=== PATIENT | female | born 1960 | race Caucasian/White ===

== ENCOUNTER 2022-05-13 10:20 | Inpatient (IN) | payer OTHER ==
[~2022-05-13] VITALS: Ht 167.6 cm; Wt 92.5 kg
--- NOTE | 2022-05-13 10:20 | NUR ---
ALEJANDRO FROM SNF FOR ALOC, POTENTIAL INFECTION. PATIENT BASELINE GCS 14 PER REPORT, PATIENT IS CURRENTLY A/O X 3, ABLE TO MAKE NEEDS KNOWN. ON 10 LPM O2 VIA FACE MASK
--- NOTE | 2022-05-13 10:36 | NUR ---
TEMP 102.6 MD KELSEA MADE AWARE
[2022-05-13] MEDS ORDERED: ACETAMINOPHEN 650 MG/SUPP.RECT RC ONE ×2 (10:37→11:00)
--- NOTE | 2022-05-13 10:48 | NUR ---
covid/urine/blood sample taken sent to lab
[2022-05-13 10:50] LABS: BASOPHILS % (AUTO) 0.3 % (0.0-2.0); HEMATOCRIT 40 % (33-45); HEMOGLOBIN 12.6 g/dL (11.5-14.8); LYMPHOCYTES # (AUTO) 1.9 K/uL (0.8-4.8); LYMPHOCYTES % (AUTO) 12.7 % (20.0-44.0); MEAN CORPUSCULAR HGB CONC 32 g/dl (31.0-36.0); MEAN CORPUSCULAR VOLUME 99 fL (82-100); MONOCYTES % (AUTO) 7.1 % (2.0-12.0); NEUTROPHILS # (AUTO) 11.8 K/uL (1.8-8.9); NEUTROPHILS % (AUTO) 79.9 % (43.0-81.0); PLATELET COUNT (AUTO) 145 K/uL (150-450); RED BLOOD CELL COUNT(AUTO) 4.03 MIL/uL (4.0-5.2); WHITE BLOOD COUNT (AUTO) 14.8 K/uL (4.3-11.0)
[2022-05-13] MEDS ORDERED: MEGE400O5 PO (11:00)
[2022-05-13] MEDS ORDERED: MAGN400O6 PO (11:00)
[2022-05-13] MEDS ORDERED: NA P133E RC (11:00)
[2022-05-13] MEDS ORDERED: IV NS 0.9% 1,000 ML BAG IV ONE ×2 (11:00→12:00)
[2022-05-13] MEDS ORDERED: ZINC56.713 TP (11:00)
[2022-05-13] MEDS ORDERED: OMEP1PAC7 PO (11:00)
[2022-05-13] MEDS ORDERED: BISA10SU11 RC (11:00)
[2022-05-13] MEDS ORDERED: ACET-2605 PO (11:00)
[2022-05-13] MEDS ORDERED: ACET-868 PO (11:00)
--- NOTE | 2022-05-13 11:11 | NUR ---
TROPONIN 100 , LACTIC ACID 3.4 . MADE AWARE
[2022-05-13 11:16] LABS: ALANINE AMINOTRANSFERASE 31 U/L (12-78); ALBUMIN 2.3 g/dL (3.4-5.0); ALKALINE PHOSPHATASE 123 U/L (46-116); ASPARTATE AMINOTRANSFERASE 54 U/L (15-37); BILIRUBIN,DIRECT 1.8 mg/dL (0.0-0.2); BILIRUBIN,TOTAL 2.9 mg/dL (0.2-1.0); CALCIUM, SERUM 8.4 mg/dL (8.5-10.1); CARBON DIOXIDE 30 mmol/L (21-32); CHLORIDE 117 mmol/L (98-107); CREATININE 1.5 mg/dL (0.6-1.3); GLUCOSE 130 mg/dL (74-106); SODIUM SERUM 153 mmol/L (136-145); TOTAL PROTEIN, SERUM 6.8 g/dL (6.4-8.2); UREA NITROGEN, BLOOD 50 mg/dL (7-18)
--- NOTE | 2022-05-13 11:21 | NUR ---
SUBMITTED MOVE PACKET
--- NOTE | 2022-05-13 11:46 | NUR ---
SECOND URINE SAMPLE OBTAINED
--- NOTE | 2022-05-13 11:52 | NUR ---
SPOKE WITH WOOD TURNER AND PROVIDED PATIENT MEDICAL HISTORY
--- NOTE | 2022-05-13 11:56 | NUR ---
CALLED NURSING SUP FOR BED
[2022-05-13] MEDS ORDERED: CEFTRIAXONE 1GM BAG (ER ONLY) 50 ML IV ONE ×2 (12:00→12:09)
--- NOTE | 2022-05-13 12:41 | NUR ---
EPIC GRAIN I FARMWORKER PAGED
--- NOTE | 2022-05-13 12:52 | NUR ---
ER AND ADMITTING ON PANEL
[2022-05-13 12:59] LABS: COLOR,URINE DARK YELLOW (YELLOW); PROTEIN,URINE 100 mg/dl (NEGATIVE); UGLUCOSE NEGATIVE (NEGATIVE)
[2022-05-13 13:00] LABS: BILIRUBIN,URINE LARGE (NEGATIVE); LEUKOCYTE ESTERASE ,URINE TRACE (NEGATIVE); NITRITE, URINE NEGATIVE (NEGATIVE); UROBILINOGEN,URINE >8.0 EU/dL (0.2)
[2022-05-13] MEDS ORDERED: AZITHROMYCIN 500 MG in IV D5W 250 ML IV ONE (13:00)
--- NOTE | 2022-05-13 13:00 | NUR ---
LACTIC ACID REDRAW 2.0, MADE AWARE
--- NOTE | 2022-05-13 14:00 | NUR ---
ON 6L/MIN VIA SIMPLE MASK TOLERATING WELL, O2SAT @ 95% THIS TIME
[2022-05-13 15:54] LABS: RBC,URINE 21-50 /HPF (0-2)
[2022-05-13 15:55] LABS: BACTERIA,URINE Many /HPF (None Seen); SQUAMOUS EPITHELIAL CELL,UR Many /HPF (None Seen); YEAST,URINE Many /HPF (None Seen)
--- NOTE | 2022-05-13 15:55 | NUR ---
COVID IS NEGATIVE PER VICENTA COOKER LOADER.
[2022-05-13 15:56] LABS: COARSE GRANULAR CASTS,URINE Few /LPF (None Seen)
--- NOTE | 2022-05-13 15:56 | NUR ---
ROOM 304-1 M ADMITTING MADE AWARE
--- NOTE | 2022-05-13 15:59 | NUR ---
ROOM CHANGED TO [facility]
--- NOTE | 2022-05-13 16:00 | NUR ---
MS ADMIT NOTE Pt arrived via gurney at approximately 1600 from ER. AOX2. ON simple facemask 6LPM and tolerating well. Tele monitor detects ST with rate of 89. IV access in L Hand infiltrated will need a new line. Patient from [facility]. Patient has Dang catheter from SNF. Safety precautions in place: bed in lowest, locked position, siderails upX4, and brakes on. Table and call light within reach. All needs met at this time.
--- NOTE | 2022-05-13 16:06 | NUR ---
REPORT GIVEN TO BHARTI WHITMAN
--- NOTE | 2022-05-13 16:14 | NUR ---
MOVED TO INPATIENT ROOM SAFELY PER ACLS PROTOCOL
[2022-05-13 17:51] LABS: BAND % (MANUAL) 2 % (0.0-5.0); LYMPHOCYTES % (MANUAL) 12 % (16-48); MONOCYTES % (MANUAL) 9 % (0-11.0); NEUTROPHILS % (MANUAL) 77 (42-76)
--- NOTE | 2022-05-13 19:00 | NUR ---
RN OPENING NOTE RECEIVED REPORT FR. NURSE CHRIS. PT IS AWAKE IN BED. A/O 1-2, CONFUSED. PT IS IN 6LPM O2 VIA NASAL CANNULA, TOLERATING WELL, BREATHING EVEN AND UNLABORED @ THIS TIME. PT IV PRESENT ON LEFT HAND IS INFILTRATED. IV PRESENT ON RIGHT HAND #20g SALINE LOCK, PATENT, INTACT AND FLUSHES WELL W/ NO IS&SX OF INFILTRATION @ SITE NOTED. PT PARRA CATHETER IS IN PLACE DRAINING TEA COLORED URINE WITH AN OUTPUT OF 300CC. PT IS ON TELE MONITOR W/ CURRENT READING OF SINUS RHYTHM, HR OF 95 BPM. SAFETY MEASURES IS IN PLACE. BED AT LOWEST AND LOCKED POSITION. SIDE RAILS UP X 3. BEDSIDE TABLE AND CALL LIGHT IS EASY REACH. BED ALARM IS ON. WILL CONTINUE TO MONITOR PT ACCORDINGLY.
--- NOTE | 2022-05-13 19:38 | NUR ---
MS RN NOTE Patient AOX1. ON simple facemask 6LPM and tolerating well. Tele monitor detects SR with rate of 95. new IV access in R Hand patent. Dang catheter draining tea-colored urine. Safety precautions in place: bed in lowest, locked position, siderails upX4, and brakes on. Table and call light within reach. All needs met at this time. Notified Vic Manuel NP for new orders, no orders had been made yet. Endorsed to next NOD for RIO.
[2022-05-13 20:00] VITALS: BP 104/53
[2022-05-13] MEDS ORDERED: CEFEPIME 1 GM in IV D5W 50 ML IV SCH (20:00)
[2022-05-13] MEDS ORDERED: ACETAMINOPHEN 325 MG TABLET PO PRN (20:00)
[2022-05-13] MEDS ORDERED: IV LR 1000 ML 1,000 ML IV PRN (20:00)
[2022-05-13] MEDS ORDERED: MAG HYDROX/AL HYDROX/SIMETH 30 ML UDC PO PRN (20:00)
[2022-05-13] MEDS ORDERED: MAGNESIUM HYDROXIDE 30 ML UDC PO PRN (20:00)
[2022-05-13] MEDS ORDERED: ONDANSETRON HCL/PF 4 MG/2 ML VIAL IVP PRN (20:00)
[2022-05-13] MEDS ORDERED: Z GUARD REMEDY 4 OZ OINT TP PRN (20:00)
--- NOTE | 2022-05-13 20:00 | NUR ---
PT IV ON LEFT HAND IS INFILFRATED. IV REMOVED.
[2022-05-13] MEDS: CEFEPIME 2 GM in IV D5W 100 ML IV SCH (21:36)
[2022-05-13] MEDS: ENOXAPARIN SODIUM 40 MG/0.4 ML DISP.SYRIN SQ SCH (22:22)
[2022-05-14] VITALS: BP 104/56
[2022-05-14 04:00] VITALS: BP 95/59
[2022-05-14 06:29] LABS: HEMATOCRIT 35 % (33-45); HEMOGLOBIN 10.8 g/dL (11.5-14.8); LYMPHOCYTES # (AUTO) 1.3 K/uL (0.8-4.8); LYMPHOCYTES % (AUTO) 8.9 % (20.0-44.0); MEAN CORPUSCULAR HGB CONC 31 g/dl (31.0-36.0); MEAN CORPUSCULAR VOLUME 103 fL (82-100); MONOCYTES # (AUTO) 0.6 K/uL (0.1-1.30); MONOCYTES % (AUTO) 4.2 % (2.0-12.0); NEUTROPHILS # (AUTO) 12.3 K/uL (1.8-8.9); NEUTROPHILS % (AUTO) 86.9 % (43.0-81.0); PLATELET COUNT (AUTO) 98 K/uL (150-450); WHITE BLOOD COUNT (AUTO) 14.1 K/uL (4.3-11.0)
[2022-05-14 06:47] LABS: ABG BASE EXCESS 0.7 mmol/L; ABG PCO2 38.8 mmHg (35.0-45.0); ABG PH 7.427 (7.350-7.450); ABG PO2 78.6 mmHg (75.0-100.0); AaDO2 190.9 mmHg; COHb 0.8 % (0.5-1.5); MetHb 0.3 % (0.0-1.5); SITE, ABG Right Radial; VENT MODE, BG SIMPLE MASK
--- NOTE | 2022-05-14 06:53 | NUR ---
RN CLOSING NOTE PT IS AWAKE & RESTING COMFORTABLY IN BED. A/O 1-2, CONFUSED BUT FOLLOWS VERBAL COMMAND. PT IS IN 6LPM O2 VIA NASAL CANNULA, W/ NO S&SX OF RESPIRATORY DISTRESS @ THIS TIME. IV PRESENT ON RIGHT HAND #20G SALINE LOCK, PATENT, INTACT AND FLUSHES WELL W/ NO S&SX OF INFILTRATION @ SITE NOTED. PT PARRA CATHETER IS IN PLACE DRAINING TEA COLORED URINE WITH AN OUTPUT OF 100 CC. PT IS KEPT CLEAN, DRY AND COMFORTABLE. PT IS ON TELE MONITOR W/ CURRENT READING OF SINUS RHYTHM W/ ST DEPRESSION, HR 83 BPM. SAFETY MEASURES IS IN PLACE. BED AT LOWEST AND LOCKED POSITION. SIDE RAILS UP X 3. BEDSIDE TABLE AND CALL LIGHT IS EASY REACH. BED ALARM IS ON. WILL ENDORSE TO THE NEXT SHIFT FOR CONTINUITY OF CARE.
--- NOTE | 2022-05-14 07:00 | NUR ---
AEROSPACE TECHNICIAN OPENING NOTES: RECEIVED PT IN AWAKE, A/OX1 BLUNTED AFFECT, NO SOB OR CARDIAC DISTRESS NOTED. ON O2 INHALATION VIA SIMPLE MASK @6LPM TOLERATING WELL,ON TELE MONITOR WITH CURRENT READING OF SINUS RHYTHM @ 83BPM.IV ACCESS ON R HAND GAUGE 20 PATENT, INTACT AND INFUSING IV FLUID LR @80ML/HR. PARRA CATHETER DRAINING ORANGE YELLOW COLORED URINE DRAINING VIA GRAVITY. SAFETY MEASURES MAINTAINED: BED LOCKED AND IN LOWEST POSITION. SIDE RAILS UP X 2. CALL LIGHT IN EASY REACH FOR HELP. WILL MONITOR PT ACCORDINGLY.
[2022-05-14 07:11] LABS: CALCIUM, SERUM 7.8 mg/dL (8.5-10.1); MAGNESIUM 2.5 mg/dL (1.8-2.4); PHOSPHORUS 2.5 mg/dL (2.5-4.9); TOTAL PROTEIN, SERUM 5.6 g/dL (6.4-8.2)
[2022-05-14 07:18] LABS: THYROID STIMULATING HORMONE 2.859 uIU/mL (0.358-3.74)
[2022-05-14 07:20] LABS: POTASSIUM 3.1 mmol/L (3.5-5.1)
[2022-05-14 08:00] VITALS: BP 100/50
[2022-05-14] MEDS: MEGESTROL ACETATE SUSP 400 MG/10 ML UDC PO SCH (08:33)
[2022-05-14] MEDS: PANTOPRAZOLE 40 MG VIAL IV SCH (08:33)
[2022-05-14] MEDS: CEFEPIME 2 GM in IV D5W 100 ML IV SCH ×2 (08:34→20:53)
[2022-05-14] MEDS: ZINC OXIDE 30 GM TUBE TP SCH (09:02)
[2022-05-14] MEDS: IV D5W 1,000 ML IV SCH ×2 (10:37→20:53)
[2022-05-14] MEDS ORDERED: POTASSIUM CHLORIDE 20 MEQ TAB.PRT.SR PO ONE (11:00)
[2022-05-14] MEDS: POTASSIUM CL. PREMIX PERIPHER. 50 ML IV SCH ×4 (11:37→14:55)
[2022-05-14 13:17] VITALS: BP 105/44
[2022-05-14 16:07] VITALS: BP 119/60
[2022-05-14 16:48] LABS: LYMPHOCYTES % (MANUAL) 2 % (16-48); MONOCYTES % (MANUAL) 4 % (0-11.0); NEUTROPHILS % (MANUAL) 94 (42-76)
--- NOTE | 2022-05-14 18:49 | NUR ---
USED CAR LOT PORTER CLOSING NOTES: PT IN AWAKE, A/OX1 BLUNTED AFFECT, NO SOB OR CARDIAC DISTRESS NOTED. ON O2 INHALATION VIA NC @3LPM TOLERATING WELL,ON TELE MONITOR WITH CURRENT READING OF SINUS RHYTHM @ 80BPM WITH BBB.IV ACCESS ON R HAND GAUGE 20 PATENT, INTACT AND INFUSING IV FLUID NS@100 ML/HR. PARRA CATHETER DRAINING ORANGE YELLOW COLORED URINE DRAINING VIA GRAVITY. WOUND CARE TREATMENT DONE. SAFETY MEASURES MAINTAINED: BED LOCKED AND IN LOWEST POSITION. SIDE RAILS UP X 2. CALL LIGHT IN EASY REACH FOR HELP.WILL ENDORSE TO DIPPER CLOCK AND WATCH HANDS RN FOR CONTINUITY OF CARE.
[2022-05-14 20:00] VITALS: BP_SYST 107; BP_DIAS 47; BP_DIAS 59
--- NOTE | 2022-05-14 20:00 | NUR ---
ALERT/ORIENTED X1, 3LPM VIA NC, SPO2 94%, DENIES PAIN, LETHARGIC. PARRA CATHETER DRAINING, URINE OUTPUT JENNIFER IN COLOR, KEPT NPO PENDING ST EVAL. FALL PRECAUTION, REPOSITIONED FOR COMFORT, WILL CONTINUE TO MONITOR.
[2022-05-14] MEDS: ENOXAPARIN SODIUM 40 MG/0.4 ML DISP.SYRIN SQ SCH (21:58)
[2022-05-15] VITALS (8 sets, daily range): BP systolic 94–116; BP diastolic 45–61
--- NOTE | 2022-05-15 06:05 | NUR ---
ALERT AND AWAKE, CONFUSED, 3LPM VIA NC, SPO2 93%, NOT IN APPARENT PAIN, BEDREST, NPO DUE TO DIFFICULTY SWALLOWING AND ALTERED MENTAL STATUS. PARRA CATHETER FOR URINARY RETENTION, URINE OUTPUT IS ORANGE, SACRAL WOUND, CLEANSE WITH SOAP AND WATER, FOAM APPLIED. CHEST XRAY, PNA OR PULMONARY EDEMA, US ABDOMEN, HEPATIC STEATOSIS. MONITOR SODIUM LEVEL, MONITOR FOR BLEEDING, ST EVAL, CONTINUE IVF, ASPIRATION PRECAUTION.
[2022-05-15] MEDS: IV D5W 1,000 ML IV SCH ×2 (06:46→15:56)
[2022-05-15 07:44] LABS: HEMATOCRIT 33 % (33-45); HEMOGLOBIN 10.5 g/dL (11.5-14.8); LYMPHOCYTES # (AUTO) 1.1 K/uL (0.8-4.8); LYMPHOCYTES % (AUTO) 8.4 % (20.0-44.0); MEAN CORPUSCULAR HGB CONC 31 g/dl (31.0-36.0); MEAN CORPUSCULAR VOLUME 100 fL (82-100); MONOCYTES # (AUTO) 0.4 K/uL (0.1-1.30); MONOCYTES % (AUTO) 3.3 % (2.0-12.0); NEUTROPHILS # (AUTO) 12.1 K/uL (1.8-8.9); NEUTROPHILS % (AUTO) 88.3 % (43.0-81.0); PLATELET COUNT (AUTO) 84 K/uL (150-450); RED BLOOD CELL COUNT(AUTO) 3.33 MIL/uL (4.0-5.2); WHITE BLOOD COUNT (AUTO) 13.7 K/uL (4.3-11.0)
--- NOTE | 2022-05-15 07:54 | NUR ---
RN OPENING NOTE PATIENT AWAKE IN BED RESTING, A/O X 0, CONFUSED, NON-VERBAL. NO S/S OF PAIN NOTED AT THIS TIME. ON 2L OXYGEN VIA NC, BREATHING EVEN UNLABORED, NO DISTRESS OR SHORTNESS OF BREATH NOTED. IV ACCESS L WRIST #22G INTACT, PATENT AND FLUSHING WELL, RUNNING D5 @ 100 ML/HR. PATIENT WITH EXTERNAL COMPLETIONS MANAGER WITH CURRENT READING OF SR AND HR OF 83, NO CARDIAC DISTRESS NOTED. PATIENT HAVE A PARRA CATHETER IN PLACED, DARNING WELL, OUTPUT JENNIFER COLOR URINE. FALL AND SAFETY MEASURES IN PLACE, BED ALARM ON, BED IN LOW AND LOCK POSITION, CALL LIGHT AND TABLE WITHIN EASY REACH, SIDE RAILS UP X2. WILL CONTINUE TO MONITOR.
[2022-05-15 08:06] LABS: MAGNESIUM 2.1 mg/dL (1.8-2.4); PHOSPHORUS 1.3 mg/dL (2.5-4.9); POTASSIUM 3.3 mmol/L (3.5-5.1)
[2022-05-15] MEDS: MEGESTROL ACETATE SUSP 400 MG/10 ML UDC PO SCH (09:00)
[2022-05-15] MEDS: PANTOPRAZOLE 40 MG VIAL IV SCH (09:26)
[2022-05-15] MEDS: CEFEPIME 2 GM in IV D5W 100 ML IV SCH ×2 (09:26→21:49)
[2022-05-15] MEDS: ZINC OXIDE 30 GM TUBE TP SCH (09:27)
--- NOTE | 2022-05-15 10:39 | NUR ---
RN NOTE PATIENT BLOOD PRESSURE AT 0800 WAS 83/49 AND HR OF 74. BLOOD PRESSURE WAS MONITOR AND CHECKED MULTIPLE TIMES LAST BLOOD PRESSURE WAS 100/52 AND HR OF 81. PATIENT IS IN 3L OXYGEN VIA NC SAT. 94%, NO SIGN OF DISTRESS OR PAIN. PATIENT IS IN ROOM RESTING COMFORTABLY. WILL CONTINUE TO MONITOR, CHARGE NURSE AWARE.
[2022-05-15] MEDS: POTASSIUM CL. PREMIX PERIPHER. 50 ML IV SCH ×2 (11:58→13:03)
[2022-05-15] MEDS ORDERED: Sodium Phosphate 15 MMOL in IV NS 0.9% 245 ML IV SCH (15:30)
--- NOTE | 2022-05-15 18:52 | NUR ---
RN CLOSING NOTE PATIENT AWAKE IN BED RESTING, A/O X 0, CONFUSED, NON-VERBAL. NO S/S OF PAIN NOTED AT THIS TIME. ON 3L OXYGEN VIA NC, BREATHING EVEN UNLABORED, NO DISTRESS OR SHORTNESS OF BREATH NOTED. IV ACCESS L WRIST #22G INTACT, PATENT AND FLUSHING WELL, RUNNING D5 @ 100 ML/HR. PATIENT WITH EXTERNAL CATH LAB MANAGER WITH CURRENT READING OF SR AND HR OF 95, NO CARDIAC DISTRESS NOTED. PATIENT HAVE A PARRA CATHETER IN PLACED, DARNING WELL, OUTPUT DARK JENNIFER COLOR URINE, OUTPUT: 300ML. SCHEDULE MEDICATIONS ADMINISTERED. SKIN CARE AND WOUND CARE IMPLEMENTED. PATIENT WAS TURNED AND REPOSITIONED PER PROTOCOL. FALL AND SAFETY MEASURES IN PLACE, BED ALARM ON, BED IN LOW AND LOCK POSITION, CALL LIGHT AND TABLE WITHIN EASY REACH, SIDE RAILS UP X2. ALL NEEDS ATTENDED AND ANTICIPATED. WILL ENDORSE TO MULTIPLE PUNCH PRESS OPERATOR NURSE.
--- NOTE | 2022-05-15 19:50 | NUR ---
CAD MANAGER OPENING NOTE RECEIVED PATIENT AWAKE, IN BED RESTING. PT A/O X 0, CONFUSED, NON-VERBAL. NO S/S OF PAIN NOTED AT THIS TIME. ON 2L OXYGEN VIA NC, BREATHING EVEN UNLABORED, NO RESPIRATORY DISTRESS OR SHORTNESS OF BREATH OBSERVED. IV ACCESS TO LEFT WRIST #22G INTACT, PATENT AND FLUSHING WELL, RUNNING D5 @ 100 ML/HR. PATIENT WITH EXTERNAL RAIL SWITCHMAN WITH CURRENT READING OF SR. NO CARDIAC DISTRESS NOTED. PARRA CATHETER IN PLACE, DRAINING JENNIFER COLOR URINE. FALL AND SAFETY MEASURES IN PLACE: BED ALARM ON, BED IN LOW AND LOCK POSITION, CALL LIGHT AND TABLE WITHIN EASY REACH, SIDE RAILS UP X2. WILL CONTINUE TO MONITOR PT.
[2022-05-15] MEDS: ENOXAPARIN SODIUM 40 MG/0.4 ML DISP.SYRIN SQ SCH ×2 (21:00→21:51)
--- NOTE | 2022-05-15 21:00 | NUR ---
FINISH OFF OPERATOR NOTE PT IS ON LOVENOX. BUT PT'S PLATELET LEVEL IS 84, HGB: 10.5, HCT: 33. MD ALBERTA CHENEY IS CALLED, AND MADE AWARE. INSTRUCTED TO HOLD LOVENOX. LOVENOX HELD.
[2022-05-16] VITALS: BP 118/54
[2022-05-16] MEDS: IV D5W 1,000 ML IV SCH ×2 (02:00→12:00)
[2022-05-16 04:00] VITALS: BP 115/52
--- NOTE | 2022-05-16 06:30 | NUR ---
MASTER CONTROL ENGINEER CLOSING NOTE LEFT PATIENT AWAKE IN BED RESTING, A/O X 0, CONFUSED, NON-VERBAL. NO S/S OF PAIN NOTED AT THIS TIME. ON 3L OXYGEN VIA NC, BREATHING EVEN UNLABORED, NO DISTRESS OR SHORTNESS OF BREATH NOTED. IV ACCESS L WRIST #22G, RUNNING D5 @ 100 ML/HR. PATIENT WITH EXTERNAL SPECIAL ORDER JEWELER WITH CURRENT READING OF SR AND HR OF 90, NO CARDIAC DISTRESS NOTED. PATIENT HAVE A PARRA CATHETER IN PLACE, DRAINING DARK JENNIFER COLOR URINE, OUTPUT: 300ML. SCHEDULED MEDICATIONS ADMINISTERED. SKIN CARE AND WOUND CARE IMPLEMENTED. PATIENT WAS TURNED AND REPOSITIONED PER PROTOCOL. FALL AND SAFETY MEASURES IN PLACE, BED ALARM ON, BED IN LOW AND LOCK POSITION, CALL LIGHT AND TABLE WITHIN EASY REACH, SIDE RAILS UP X2. ALL NEEDS ATTENDED AND ANTICIPATED. WILL ENDORSE TO MORNING SHIFT NURSE FOR RIO.
[2022-05-16 06:33] LABS: CALCIUM, SERUM 7.6 mg/dL (8.5-10.1); CREATININE 0.7 mg/dL (0.6-1.3); POTASSIUM 3.1 mmol/L (3.5-5.1)
--- NOTE | 2022-05-16 07:09 | NUR ---
STAYING MACHINE OPERATOR OPENING NOTES RECEIVED PATIENT AWAKE IN BED, A/Ox0, NON-VERBAL, RESPONDS TO VERBAL AND TACTILE STIMULI. ON 3L O2 VIA NC. NO S/S OF RESPIRATORY DISTRESS. ON TELE MONITORING SHOWING SINUS RHYTHM HR 98. NO S/S OF RESPIRATORY DISTRESS. IV ACCESS L WRIST #22G RUNNING D5 @100 ML/HR. INTACT AND PATENT. ON BED REST, HAS FC DRAINING ORANGE URINE. SKIN ISSUES: SACRAL WOUND, CINTHIA BRUISE. SAFETY MEASURES IN PLACE: BED LOCKED AND IN LOWEST POSITION, HOB ELEVATED, CALL LIGHT WITHIN REACH, SIDE RAILS UPx2. WILL CONTINUE TO MONITOR.
[2022-05-16 07:32] LABS: ALBUMIN 1.9 g/dL (3.4-5.0); BILIRUBIN,DIRECT 1.3 mg/dL (0.0-0.2); BILIRUBIN,TOTAL 2.3 mg/dL (0.2-1.0); TOTAL PROTEIN, SERUM 4.7 g/dL (6.4-8.2)
[2022-05-16 08:15] VITALS: BP 135/52
[2022-05-16] MEDS: MEGESTROL ACETATE SUSP 400 MG/10 ML UDC PO SCH (09:00)
[2022-05-16] MEDS: PANTOPRAZOLE 40 MG VIAL IV SCH (09:00)
[2022-05-16] MEDS: CEFEPIME 2 GM in IV D5W 100 ML IV SCH ×2 (09:00→21:15)
[2022-05-16] MEDS: ZINC OXIDE 30 GM TUBE TP SCH (09:09)
[2022-05-16] MEDS: VANCOMYCIN 1 GM in IV D5W 250ml IV SCH ×2 (09:49→21:52)
--- NOTE | 2022-05-16 10:00 | NUR ---
RN NOTES PATIENT UNABLE TO STAY AWAKE LONG ENOUGH TO TRY SWALLOW EVAL. MORNING PO MEDICATION NOT ADMINISTERED. WILL CONTINUE TO MONITOR.
[2022-05-16] MEDS: POTASSIUM CL. PREMIX PERIPHER. 50 ML IV SCH ×4 (10:51→13:58)
--- NOTE | 2022-05-16 11:00 | NUR ---
WOUND CARE CONSULT: PT PRESENTS WITH SACRAL DEEP TISSUE INJURY IN EVOLUTION, DISCOLORATION TO RT BUTTOCK AND INNER THIGHS, PRESENT ON ADMISSION. DR JAMES CALLED FOR SURGICAL CONSULT. DISCUSSED SKIN PROTECTION AND WOUND CARE RECOMMENDATIONS WITH NURSING STAFF. FIRST STEP LOW AIRLOSS MATTRESS IS ON ORDER. MD IN AGREEMENT WITH PLAN OF CARE.
[2022-05-16 11:58] VITALS: BP 100/54
[2022-05-16 16:00] VITALS: BP 121/60
[2022-05-16] MEDS: DIFLUCAN -NS 100 MG in PREMIX IV SCH (16:40)
--- NOTE | 2022-05-16 18:43 | NUR ---
CHEMICAL TREATMENT PLANT TECHNICIAN CLOSING NOTES PATIENT AWAKE IN BED, A/Ox0-1, NON-VERBAL, RESPONDS TO VERBAL AND TACTILE STIMULI. STABLE ON 3L O2 VIA NC. NO S/S OF RESPIRATORY DISTRESS. ON TELE MONITORING SHOWING SINUS RHYTHM/TACH HR 104. NO S/S OF RESPIRATORY DISTRESS. IV ACCESS R HAND #22G RUNNING D5 @100 ML/HR. INTACT AND PATENT. ON BED REST, HAS FC DRAINING ORANGE URINE 300 OUTPUT. SKIN ISSUES: SACRAL WOUND, CINTHIA BRUISE. SAFETY MEASURES MAINTAINED: BED LOCKED AND IN LOWEST POSITION, HOB ELEVATED, CALL LIGHT WITHIN REACH, SIDE RAILS UPx2. WILL ENDORSE TO NEXT SHIFT ANY RIO.
--- NOTE | 2022-05-16 19:25 | NUR ---
TELERN ASLEEP. AROUSABLE WHEN CALLED. EASILY GOES BACK TO SLEEP. PARRA TO GRAVITY MONITORED OUTPUT. KEPT COMFORTABLE, CONTINUED MONITORING. CLOSELY WATCHED.
[2022-05-16 20:00] VITALS: BP 118/62
[2022-05-16] MEDS: ENOXAPARIN SODIUM 40 MG/0.4 ML DISP.SYRIN SQ SCH (21:00)
--- NOTE | 2022-05-16 21:37 | NUR ---
TELERN LOVENOX DOSE FOR TONIGHT HELD PER . PLT 84
--- NOTE | 2022-05-16 23:40 | NUR ---
TELERN FREQUENTLY CHECKED, REMAINS SR ON THE MONITOR. OPENS EYES WHEN TOUCHED. NON VERBAL. IVF CONTINUED.
[2022-05-17] VITALS: BP 122/58
[2022-05-17 04:00] VITALS: BP 107/60
[2022-05-17] MEDS: IV D5W 1,000 ML IV SCH ×3 (04:34→17:42)
--- NOTE | 2022-05-17 05:32 | NUR ---
TELERN AM CARE DONE, HAD SMALL SOFT BM. SACRAL DRESSING CHANGED. TOTAL CARE. REPOSITIONED FOR COMFORT. KEPT DRY AND CLEAN. PARRA FOUL ODOR TEA COLORED URINE 400 CC OUT.
[2022-05-17 07:32] LABS: CALCIUM, SERUM 7.6 mg/dL (8.5-10.1); CREATININE 0.7 mg/dL (0.6-1.3); POTASSIUM 3.8 mmol/L (3.5-5.1)
[2022-05-17 07:36] VITALS: BP 116/67
--- NOTE | 2022-05-17 07:50 | NUR ---
PEOPLE GREETER OPENING NOTES RECEIVED PATIENT SLEEPING IN BED, A/Ox0, NON-VERBAL, RESPONDS TO VERBAL AND TACTILE STIMULI. ON 3L O2 VIA NC. NO S/S OF RESPIRATORY DISTRESS. ON TELE MONITORING SHOWING SINUS RHYTHM HR 94. NO S/S OF RESPIRATORY DISTRESS. IV ACCESS R HAND #22G RUNNING D5 @100 ML/HR. INTACT AND PATENT. ON BED REST, HAS FC DRAINING ORANGE URINE. SKIN ISSUES: SACRAL WOUND, CINTHIA BRUISE. SAFETY MEASURES IN PLACE: BED LOCKED AND IN LOWEST POSITION, HOB ELEVATED, CALL LIGHT WITHIN REACH, SIDE RAILS UPx2. WILL CONTINUE TO MONITOR.
--- NOTE | 2022-05-17 08:05 | NUR ---
RENTAL AGENT NOTES PATIENT HAS A BRUISE ON RIGHT WRIST AND RIGHT HAND. PHOTO TAKEN AND DOCUMENTED. REE OLIVER MADE AWARE. WILL CONTINUE TO MONITOR PATIENT.
[2022-05-17] MEDS: MEGESTROL ACETATE SUSP 400 MG/10 ML UDC PO SCH (09:00)
[2022-05-17] MEDS: VANCOMYCIN 1 GM in IV D5W 250ml IV SCH ×2 (09:00→20:39)
--- NOTE | 2022-05-17 09:00 | NUR ---
RN NOTES PATIENT IS NPO. DAVEY SUSP UDC 400MG/10ML NOT ADMINISTERED AT THIS TIME
[2022-05-17] MEDS: PANTOPRAZOLE 40 MG VIAL IV SCH (09:02)
[2022-05-17] MEDS: ZINC OXIDE 30 GM TUBE TP SCH (09:04)
[2022-05-17] MEDS: CEFEPIME 2 GM in IV D5W 100 ML IV SCH ×2 (09:05→20:43)
--- NOTE | 2022-05-17 11:00 | NUR ---
STANDARDS ANALYST NOTES CHANGED PATIENT CATHETER BAG.
[2022-05-17 11:19] VITALS: BP 92/50
--- NOTE | 2022-05-17 12:00 | NUR ---
BUSINESS ANALYTICS SPECIALIST NOTES IV ACCESS ON THE RIGHT THUMB REMOVED. INSERTED IV AT RIGHT FOREARM 22#G. CONTINUED IV D5W @ 100ML/HR PATENT , INTACT, AND INFUSING WELL. WILL CONTINUE TO MONITOR PATIENT.
[2022-05-17 14:32] LABS: BASOPHILS % (AUTO) 0.2 % (0.0-2.0); HEMATOCRIT 31 % (33-45); HEMOGLOBIN 9.9 g/dL (11.5-14.8); LYMPHOCYTES % (AUTO) 10.6 % (20.0-44.0); MEAN CORPUSCULAR HGB CONC 32 g/dl (31.0-36.0); MEAN CORPUSCULAR VOLUME 100 fL (82-100); MONOCYTES # (AUTO) 0.4 K/uL (0.1-1.30); MONOCYTES % (AUTO) 4.6 % (2.0-12.0); NEUTROPHILS % (AUTO) 84.6 % (43.0-81.0); PLATELET COUNT (AUTO) 82 K/uL (150-450); RED BLOOD CELL COUNT(AUTO) 3.06 MIL/uL (4.0-5.2); WHITE BLOOD COUNT (AUTO) 9.5 K/uL (4.3-11.0)
[2022-05-17 15:22] VITALS: BP 111/55
[2022-05-17 15:57] LABS: LYMPHOCYTES % (MANUAL) 5 % (16-48); MONOCYTES % (MANUAL) 2 % (0-11.0); NEUTROPHILS % (MANUAL) 93 (42-76)
[2022-05-17] MEDS: DIFLUCAN -NS 100 MG in PREMIX IV SCH (16:50)
--- NOTE | 2022-05-17 18:43 | NUR ---
MARKER MAKER CLOSING NOTES PATIENT SLEEPING IN BED, A/Ox0, NON-VERBAL, RESPONDS TO VERBAL AND TACTILE STIMULI. ON 3L O2 VIA NC. NO S/S OF RESPIRATORY DISTRESS. ON TELE MONITORING SHOWING SINUS RHYTHM HR 94. NO S/S OF RESPIRATORY DISTRESS. IV ACCESS RAC #22G RUNNING D5 @100 ML/HR. INTACT, PATENT, AND INFUSING WELL. ON BED REST, HAS FC DRAINING ORANGE URINE. SKIN ISSUES: SACRAL WOUND, CINTHIA BRUISE. SAFETY MEASURES IN PLACE: BED LOCKED AND IN LOWEST POSITION, HOB ELEVATED, CALL LIGHT WITHIN REACH, SIDE RAILS UPx2. WILL ENDORSE TO FABRICATION AND LAYOUT CRAFTSMAN NURSE FOR RIO.
--- NOTE | 2022-05-17 19:30 | NUR ---
TERRESTRIAL ECOLOGIST OPENING NOTE RECEIVED PT AWAKE IN BED. A/O X1 AND LETHARGIC. PT ON O2 @ 3LPM VIA NC, TOLERATING WELL. NO SOB OR S/S OF RESPIRATORY DISTRESS. BREATHING EVEN AND UNLABORED. ON EXTERNAL REGISTRAR ASSISTANT READING SR 94 BPM. IV ACCESS RAC 22G, INTACT AND PATENT, RUNNING D5W @ 100 ML/HR. WITH PARRA DRAINING URINE BY GRAVITY. SAFETY PRECAUTIONS IN PLACE. BED IN LOWEST LOCKED POSITION, HOB ELEVATED, SIDE RAILS UP X3, AND CALL LIGHT AND TABLE WITHIN REACH. ALL NEEDS MET AT THIS TIME.
[2022-05-17 20:00] VITALS: BP 107/51
[2022-05-17] MEDS: ENOXAPARIN SODIUM 40 MG/0.4 ML DISP.SYRIN SQ SCH (20:39)
--- NOTE | 2022-05-17 20:39 | NUR ---
RN NOTE VANCO TROUGH 21. INFORMED PHARMACY WITH ORDER TO HOLD MEDICATION. VANCO HELD AT THIS TIME.
[2022-05-18] VITALS: BP 108/57
[2022-05-18 04:00] VITALS: BP 108/62
[2022-05-18] MEDS: IV D5W 1,000 ML IV SCH ×2 (04:26→13:47)
[2022-05-18 06:00] VITALS: BP 108/62
--- NOTE | 2022-05-18 06:33 | NUR ---
BULK GAS SPECIALIST CLOSING NOTE PT AWAKE IN BED. A/O X1 AND NONVERBAL. PT ON O2 @ 3LPM VIA NC, TOLERATING WELL. NO SOB OR S/S OF RESPIRATORY DISTRESS. BREATHING EVEN AND UNLABORED. ON EXTERNAL BALE SEWER READING SR 90 BPM. IV ACCESS RAC 22G, INTACT AND PATENT, RUNNING D5W @ 100 ML/HR. WITH PARRA DRAINING URINE BY GRAVITY, DRAINED 1200 CC THIS SHIFT. ALL DUE MEDS GIVEN ORDERED. WOUND CARE RENDERED ORDERED. KEPT CLEAN AND DRY. SAFETY PRECAUTIONS IN PLACE AT ALL TIMES. BED IN LOWEST LOCKED POSITION, HOB ELEVATED, SIDE RAILS UP X3, AND CALL LIGHT AND TABLE WITHIN REACH. ALL NEEDS MET AT THIS TIME AND WILL ENDORSE TO ONCOMING NURSE FOR RIO.
[2022-05-18 06:47] LABS: BASOPHILS % (AUTO) 0.1 % (0.0-2.0); HEMATOCRIT 34 % (33-45); LYMPHOCYTES # (AUTO) 1.1 K/uL (0.8-4.8); LYMPHOCYTES % (AUTO) 9.8 % (20.0-44.0); MEAN CORPUSCULAR HGB CONC 33 g/dl (31.0-36.0); MEAN CORPUSCULAR VOLUME 101 fL (82-100); MONOCYTES # (AUTO) 0.5 K/uL (0.1-1.30); NEUTROPHILS # (AUTO) 9.3 K/uL (1.8-8.9); NEUTROPHILS % (AUTO) 85.1 % (43.0-81.0); PLATELET COUNT (AUTO) 91 K/uL (150-450); RED BLOOD CELL COUNT(AUTO) 3.32 MIL/uL (4.0-5.2)
[2022-05-18 07:08] LABS: CALCIUM, SERUM 7.5 mg/dL (8.5-10.1); CREATININE 0.5 mg/dL (0.6-1.3); MAGNESIUM 1.8 mg/dL (1.8-2.4); POTASSIUM 3.3 mmol/L (3.5-5.1)
--- NOTE | 2022-05-18 07:30 | NUR ---
TELE ACCESS COORDINATOR OPENING NOTES PATIENT RECEIVED ASLEEP WITH VISIBLE CHEST EXTENSION, A/Ox1, ON 3L OF OXYGEN. WITH NO S/S OF SOB. NON VERBAL. PATIENT IS CURRENTLY ON EXTERNAL SIDE PANEL PADDER CURRENT READING SR IN 90s. PATIENT IS INCONTINENT USING F/C . IV ACCESS ON THE RAC G#22, INTACT AND FLUSHING WELL. FALL AND SAFETY MEASURES IN PLACE: BED ALARM IS ON, BED AT THE LOWEST POSITION AND LOCKED, SRx2 CALL LIGHT WITHIN REACH.
[2022-05-18 08:00] VITALS: BP 118/63
[2022-05-18] MEDS: VANCOMYCIN 1 GM in IV D5W 250ml IV SCH (09:00)
[2022-05-18] MEDS: MEGESTROL ACETATE SUSP 400 MG/10 ML UDC PO SCH (09:00)
[2022-05-18] MEDS: PANTOPRAZOLE 40 MG VIAL IV SCH (09:18)
[2022-05-18] MEDS: CEFEPIME 2 GM in IV D5W 100 ML IV SCH ×2 (09:19→21:34)
[2022-05-18] MEDS: ZINC OXIDE 30 GM TUBE TP SCH (09:19)
--- NOTE | 2022-05-18 09:40 | NUR ---
RN NOTE Vancomycin IV scheduled for 0900 not given. Vanco trough last night was 21. Confirmed with pharmacy, they will change dosage and time for medication.
[2022-05-18] MEDS ORDERED: POTASSIUM CL. PREMIX PERIPHER. 50 ML IV SCH (10:00)
[2022-05-18] MEDS: VANCOMYCIN 0.75 GM in IV D5W 250 ML IV SCH ×2 (10:07→22:18)
[2022-05-18 10:37] LABS: ALBUMIN 1.7 g/dL (3.4-5.0); BILIRUBIN,DIRECT 0.8 mg/dL (0.0-0.2); BILIRUBIN,TOTAL 1.6 mg/dL (0.2-1.0)
--- NOTE | 2022-05-18 13:05 | NUR ---
RN NOTE Patient's IV access on RAC leaking, removed. New IV access re-inserted at Right hand #22.
[2022-05-18] MEDS: POTASSIUM PHOSPHATE MM 7.5 MMOL in IV NS 0.9% 100 ML IV SCH ×2 (14:40→18:27)
[2022-05-18 15:54] LABS: BAND % (MANUAL) 1 % (0.0-5.0); LYMPHOCYTES % (MANUAL) 7 % (16-48); NEUTROPHILS % (MANUAL) 88 (42-76)
[2022-05-18 15:55] LABS: MONOCYTES % (MANUAL) 4 % (0-11.0)
[2022-05-18 16:00] VITALS: BP 99/41
[2022-05-18] MEDS: DIFLUCAN -NS 100 MG in PREMIX IV SCH (17:24)
--- NOTE | 2022-05-18 19:32 | NUR ---
END LATHE OPERATOR CLOSING NOTE Patient in bed, resting. A/O x 1, mostly lethargic but responsive. On O2 at 2 LPM via NC. No SOB or s/s of distress noted. IV access on Right hand #22 with D5W at 100 ml/hr. Currently infusing Potassium phosphate at 34.17 ml/hr. On external monitor showing SR, HR on the 90's. Dang catheter in place draining to an nancy colored urine with an output of 800 cc. Turned and repositioned, as tolerated. Patient kept NPO until passess swallow eval with speech therapist. Safety precautions in place: bed in low, locked position; siderails up x2; call light within reach. Will endorse to cyber forensic specialist nurse for RIO.
--- NOTE | 2022-05-18 19:40 | NUR ---
WHEEL LACER AND TRUER OPENING NOTE RECEIVED PT AWAKE IN BED. PT A/O X1, LETHARGIC. PT ON O2 @ 3LPM VIA NC, TOLERATING WELL. NO SOB OR S/S OF RESPIRATORY DISTRESS. BREATHING EVEN AND UNLABORED. ON EXTERNAL AUTOMAT WATCHER READING SR 86 BPM. IV ACCESS TO RIGHT AC 22G, INTACT AND PATENT, RUNNING D5W @ 100 ML/HR. PARRA CATHETER IN PLACE DRAINING URINE BY GRAVITY. SAFETY PRECAUTIONS IN PLACE. BED IN LOWEST LOCKED POSITION, HOB ELEVATED, SIDE RAILS UP X3, AND CALL LIGHT AND TABLE WITHIN REACH. WILL CONTINUE TO MONITOR.
[2022-05-18 20:00] VITALS: BP 99/58
[2022-05-18] MEDS: ENOXAPARIN SODIUM 40 MG/0.4 ML DISP.SYRIN SQ SCH (21:00)
--- NOTE | 2022-05-18 21:00 | NUR ---
WELFARE DIRECTOR NOTE LOVENOX IS HELD DUE TO LOW PLATELET LEVELS: 91. AWARE.
[2022-05-19] VITALS: BP 100/51
[2022-05-19] MEDS: IV D5W 1,000 ML IV SCH
[2022-05-19 04:00] VITALS: BP 108/56
[2022-05-19 06:21] LABS: BASOPHILS % (AUTO) 0.1 % (0.0-2.0); HEMATOCRIT 33 % (33-45); HEMOGLOBIN 10.8 g/dL (11.5-14.8); LYMPHOCYTES % (AUTO) 8.5 % (20.0-44.0); MEAN CORPUSCULAR HGB CONC 33 g/dl (31.0-36.0); MEAN CORPUSCULAR VOLUME 101 fL (82-100); MONOCYTES # (AUTO) 0.7 K/uL (0.1-1.30); NEUTROPHILS # (AUTO) 10.5 K/uL (1.8-8.9); NEUTROPHILS % (AUTO) 85.4 % (43.0-81.0); PLATELET COUNT (AUTO) 105 K/uL (150-450); RED BLOOD CELL COUNT(AUTO) 3.29 MIL/uL (4.0-5.2); WHITE BLOOD COUNT (AUTO) 12.2 K/uL (4.3-11.0)
--- NOTE | 2022-05-19 06:51 | NUR ---
SPORTS TEACHER CLOSING NOTE LEFT PT RESTING IN BED, EASY TO AROUSE. PT A/O X1, LETHARGIC. ON O2 @ 3LPM VIA NC, TOLERATING WELL. NO SOB OR S/S OF RESPIRATORY DISTRESS. BREATHING EVEN AND UNLABORED. ON EXTERNAL LAND MANAGER READING SR 86 BPM. IV ACCESS TO RIGHT HAND 22G, INTACT AND PATENT, RUNNING D5W @ 100 ML/HR. PARRA CATHETER IN PLACE DRAINING URINE BY GRAVITY, WITH 900 ML OF URINE OUTPUT. SAFETY PRECAUTIONS IN PLACE. BED IN LOWEST LOCKED POSITION, HOB ELEVATED, SIDE RAILS UP X3, AND CALL LIGHT AND TABLE WITHIN REACH. WILL ENDORSE PT TO MORNING SHIFT NURSE FOR CONTINUITY OF CARE.
[2022-05-19 07:00] VITALS: BP_SYST 113; BP_SYST 126; BP_DIAS 59; BP_DIAS 72
[2022-05-19 07:09] LABS: CALCIUM, SERUM 7.6 mg/dL (8.5-10.1); CREATININE 0.5 mg/dL (0.6-1.3); MAGNESIUM 1.7 mg/dL (1.8-2.4); PHOSPHORUS 2.6 mg/dL (2.5-4.9); POTASSIUM 3.5 mmol/L (3.5-5.1)
--- NOTE | 2022-05-19 07:57 | NUR ---
SHIPFITTER APPRENTICE OPENING NOTE Patient in bed, asleep. A/O x 1. On O2 at 3 LPM via NC, breathing evenly and unlabored. No SOB or s/s of distress noted. IV access on Right hand #22 infusing D5W at 100 ml/hr. On tele monitoring showing SR, HR on the 80's. NPO maintained until passes swallow eval with speech therapist. Dang catheter in place draining to a yellow-orange colored urine. Safety precautions in place: bed in low, locked position; siderails up x2; call light within reach. Will continue to monitor.
[2022-05-19] MEDS: PANTOPRAZOLE 40 MG VIAL IV SCH (08:18)
[2022-05-19] MEDS: CEFEPIME 2 GM in IV D5W 100 ML IV SCH ×2 (08:18→21:54)
[2022-05-19] MEDS: ZINC OXIDE 30 GM TUBE TP SCH (08:19)
[2022-05-19] MEDS: MEGESTROL ACETATE SUSP 400 MG/10 ML UDC PO SCH (08:19)
[2022-05-19] MEDS: VANCOMYCIN 0.75 GM in IV D5W 250 ML IV SCH ×2 (10:10→22:39)
[2022-05-19] MEDS: IV D5W 1,000 ML IV PRN (10:17)
[2022-05-19] MEDS: Magnesium 1GM/D5W 100ML PREMIX 100 ML IV SCH ×2 (11:15→12:22)
[2022-05-19 12:00] VITALS: BP 114/58
[2022-05-19 16:00] VITALS: BP 123/63
[2022-05-19] MEDS: DIFLUCAN -NS 100 MG in PREMIX IV SCH (17:01)
--- NOTE | 2022-05-19 19:02 | NUR ---
SLAUGHTERER RELIGIOUS RITUAL CLOSING NOTE Patient in bed, asleep. A/O x 1, more alert today. On O2 at 3 LPM via NC, breathing evenly and unlabored. No SOB or s/s of distress noted. IV access on Right hand #22 infusing D5W at 100 ml/hr. On tele monitoring showing SR, HR on the 80's. NPO maintained until passes swallow eval with speech therapist. Dang catheter in place draining to a yellow-orange colored urine with an output of 680 cc. Patient kept clean and dry. Wound care done, as ordered. Due meds given. Turned and repositioned, as tolerated. Safety precautions in place: bed in low, locked position; siderails up x2; call light within reach. Will endorse to film processing shift supervisor nurse for RIO.
--- NOTE | 2022-05-19 19:50 | NUR ---
CHUCKING MACHINE SET UP OPERATOR TOOL OPENING NOTE RECEIVED PT AWAKE IN BED. PT A/O X1. ON O2 @ 3LPM VIA NC, TOLERATING WELL. NO SOB OR S/S OF RESPIRATORY DISTRESS. BREATHING EVEN AND UNLABORED. ON EXTERNAL CEMENT LOADER READING SR WITH HR IN 80s. IV ACCESS TO RIGHT AC 22G, INTACT AND PATENT, RUNNING D5W @ 100 ML/HR. PARRA CATHETER IN PLACE DRAINING URINE BY GRAVITY. SAFETY PRECAUTIONS IN PLACE. BED IN LOWEST LOCKED POSITION, HOB ELEVATED, SIDE RAILS UP X3, AND CALL LIGHT AND TABLE WITHIN REACH. WILL CONTINUE TO MONITOR PT.
[2022-05-19 20:00] VITALS: BP 129/66
--- NOTE | 2022-05-19 21:00 | NUR ---
DIRECTOR SECURITY MANAGEMENT NOTE PT'S PLATELETS LEVELS ARE 105, AND PT IS ON LOVENOX. MIGUEL SYED IS CALLED, AND MADE AWARE. MIGUEL SYED STATES THAT LOVENOX CAN BE GIVEN. LOVENOX ADMINISTERED.
[2022-05-19] MEDS: ENOXAPARIN SODIUM 40 MG/0.4 ML DISP.SYRIN SQ SCH (22:39)
[2022-05-20] VITALS: BP 120/60
--- NOTE | 2022-05-20 06:30 | NUR ---
LEASE ADMINISTRATOR CLOSING NOTE LEFT PT AWAKE IN BED. PT A/O X1. ON O2 @ 3LPM VIA NC, TOLERATING WELL. NO SOB OR S/S OF RESPIRATORY DISTRESS. BREATHING EVEN AND UNLABORED. ON EXTERNAL HEADMASTER/MISTRESS READING SR WITH HR IN 80s. IV ACCESS TO RIGHT AC 22G, INTACT AND PATENT, RUNNING D5W @ 100 ML/HR. PARRA CATHETER IN PLACE DRAINING URINE BY GRAVITY, WITH URINE OUTPUT: 800 ML. SAFETY PRECAUTIONS IN PLACE. BED IN LOWEST LOCKED POSITION, HOB ELEVATED, SIDE RAILS UP X3, AND CALL LIGHT AND TABLE WITHIN REACH. WILL ENDORSE PT TO AM SHIFT NURSE FOR RIO.
[2022-05-20 07:25] LABS: CALCIUM, SERUM 7.8 mg/dL (8.5-10.1); CREATININE 0.5 mg/dL (0.6-1.3); MAGNESIUM 2.4 mg/dL (1.8-2.4)
--- NOTE | 2022-05-20 07:30 | NUR ---
GENERAL ROAD PRODUCTION MANAGER OPENING NOTE RECEIVED PT SLEEPING IN BED. PT A/O X1. ON O2 @ 3LPM VIA NC, TOLERATING WELL. NO SOB OR S/S OF RESPIRATORY DISTRESS. BREATHING EVEN AND UNLABORED. PT ON NPO AWAITING SWALLOW EVAL. ON EXTERNAL HOT DOG VENDER READING SR WITH HR IN 80s. IV ACCESS TO RIGHT AC 22G, INTACT AND PATENT, RUNNING D5W @ 100 ML/HR. INCONTINENT X2. PARRA CATHETER IN PLACE DRAINING URINE BY GRAVITY, WITH URINE OUTPUT: 800 ML. SAFETY PRECAUTIONS IN PLACE. BED IN LOWEST LOCKED POSITION, HOB ELEVATED, SIDE RAILS UP X3, AND CALL LIGHT AND TABLE WITHIN REACH. WILL ADMINISTER SCHEDULED MEDS.
[2022-05-20] MEDS: IV D5W 1,000 ML IV PRN (07:31)
[2022-05-20] MEDS: CEFEPIME 2 GM in IV D5W 100 ML IV SCH ×2 (10:33→22:10)
[2022-05-20] MEDS: MEGESTROL ACETATE SUSP 400 MG/10 ML UDC PO SCH (10:38)
[2022-05-20] MEDS: PANTOPRAZOLE 40 MG VIAL IV SCH (10:39)
[2022-05-20] MEDS: IV D5/ 0.9% NACL 1,000 ML IV SCH ×2 (10:44→22:16)
[2022-05-20] MEDS: VANCOMYCIN 0.75 GM in IV D5W 250 ML IV SCH ×2 (11:17→22:46)
[2022-05-20] MEDS: ZINC OXIDE 30 GM TUBE TP SCH (11:39)
--- NOTE | 2022-05-20 13:19 | NUR ---
Responsible green party: ZACHARY was notified that nursing has been unable to contact the pt.'s cousin, ALAN SAAB tel:[phone]. SW called [facility] [phone] and spoke to the SW who stated the pt. only has her cousin, Alan listed as an emergency contact. ZACHARY called ALAN SAAB tel:[phone] multiple different times throughout the day and no answer.
[2022-05-20] MEDS: DIFLUCAN -NS 100 MG in PREMIX IV SCH (17:33)
[2022-05-20] MEDS: PROSOURCE / PROSTAT (PYXIS) 30 ML UDC GT SCH (18:09)
--- NOTE | 2022-05-20 18:42 | NUR ---
[employer] SPE[employer] LANGUAGE PATHOLOGIST CLOSING NOTE PT RESTING IN BED WATCHING TV IN HIGH FOWLERS POSITION. PT A/O X2. ON O2 @ 3LPM VIA NC, TOLERATING WELL. NO SOB OR S/S OF RESPIRATORY DISTRESS. BREATHING EVEN AND UNLABORED. PT PASSED SWALLOW EVAL. NOW ON MECHANICAL SOFT DIET. ON EXTERNAL SACK SEWER MACHINE READING SR WITH HR IN 80s. IV ACCESS TO RIGHT AC 22G, INTACT AND PATENT, RUNNING D5NS @ 90 ML/HR. INCONTINENT X2. PARRA CATHETER IN PLACE DRAINING URINE BY GRAVITY, WITH URINE OUTPUT: 800 ML. SAFETY PRECAUTIONS IN PLACE. BED IN LOWEST LOCKED POSITION, HOB ELEVATED, SIDE RAILS UP X3, AND CALL LIGHT AND TABLE WITHIN REACH. ALL SCHEDULED MEDS ADMINISTERED. WILL ENDORSE TO NEXT SHIFT.
[2022-05-20 20:00] VITALS: BP 124/65
--- NOTE | 2022-05-20 20:00 | NUR ---
MS J CARLOS INITIAL NOTES RECEIVED PATIENT AWAKE, IN BED RESTING. PT A/O X 1, CONFUSED, . NO S/S OF PAIN NOTED AT THIS TIME. ON 2L OXYGEN VIA NC, BREATHING EVEN UNLABORED, NO RESPIRATORY DISTRESS OR SHORTNESS OF BREATH OBSERVED. IV ACCESS TO RIGHT HAND INTACT, PATENT AND FLUSHING WELL, RUNNING D5NS @ 90ML/HR. PATIENT WITH EXTERNAL TRAINING SYSTEMS OFFICER WITH CURRENT READING OF SR. NO CARDIAC DISTRESS NOTED. PARRA CATHETER IN PLACE, DRAINING JENNIFER COLOR URINE. FALL AND SAFETY MEASURES IN PLACE: BED ALARM ON, BED IN LOW AND LOCK POSITION, CALL LIGHT AND TABLE WITHIN EASY REACH, SIDE RAILS UP X2. WILL CONTINUE TO MONITOR PT.
[2022-05-20] MEDS: ENOXAPARIN SODIUM 40 MG/0.4 ML DISP.SYRIN SQ SCH (22:15)
[2022-05-21 07:14] LABS: BASOPHILS % (AUTO) 0.2 % (0.0-2.0); HEMATOCRIT 31 % (33-45); MEAN CORPUSCULAR HGB CONC 32 g/dl (31.0-36.0); MEAN CORPUSCULAR VOLUME 105 fL (82-100); MONOCYTES # (AUTO) 0.7 K/uL (0.1-1.30); MONOCYTES % (AUTO) 6.7 % (2.0-12.0); NEUTROPHILS # (AUTO) 8.1 K/uL (1.8-8.9); NEUTROPHILS % (AUTO) 83.1 % (43.0-81.0); PLATELET COUNT (AUTO) 92 K/uL (150-450); RED BLOOD CELL COUNT(AUTO) 2.98 MIL/uL (4.0-5.2); WHITE BLOOD COUNT (AUTO) 9.8 K/uL (4.3-11.0)
[2022-05-21 07:18] LABS: CALCIUM, SERUM 7.9 mg/dL (8.5-10.1); CREATININE 0.7 mg/dL (0.6-1.3); MAGNESIUM 2.2 mg/dL (1.8-2.4); POTASSIUM 3.4 mmol/L (3.5-5.1)
--- NOTE | 2022-05-21 07:56 | NUR ---
MS REFUGE MANAGER CLOSING NOTES PATIENT SLEEPING IN BED, A/Ox 2 , ABLE TO SAY SOME WORDS. RESPONDS TO VERBAL AND TACTILE STIMULI. ON 3L O2 VIA NC. NO S/S OF RESPIRATORY DISTRESS. ON TELE MONITORING SHOWING SINUS RHYTHM HR 94. NO S/S OF RESPIRATORY DISTRESS. IV ACCESS RIGHT HAND RUNNING D5 NS @90ML/HR. INTACT, PATENT, AND INFUSING WELL. ON BED REST, HAS FC DRAINING ORANGE URINE. SKIN ISSUES: SACRAL WOUND, CINTHIA BRUISE. SAFETY MEASURES IN PLACE: BED LOCKED AND IN LOWEST POSITION, HOB ELEVATED, CALL LIGHT WITHIN REACH, SIDE RAILS UPx2. WILL ENDORSE TO AM NURSE FOR CONTINUITY OF CARE.
[2022-05-21 08:00] VITALS: BP 108/50
--- NOTE | 2022-05-21 08:00 | NUR ---
RN OPENING NOTE RECEIVED PATIENT IN BED AO x 1-2, ABLE TO RESPONDS PHYSICAL STIMULI. RESPIRATORY EVEN AND UNLABORED IN OXYGEN AT 2Ls VIA NC. IN NO ACUTE RESPIRATORY DISTRESS OBSERVED. SKIN IS WARM TO TOUCH, KEEP CLEAN/DRY. KEPT ELEVATED HOB FOR ASPIRATION PRECAUTION AND ENSURE AIRWAY, ALSO LOWEST BED POSITIONED. BED ALARM IS ON AT ALL TIMES FOR SAFETY. CALL LIGHT WITHIN REACH, WILL CONTINUE TO MONITOR.
[2022-05-21] MEDS: PANTOPRAZOLE 40 MG/PACK PACK PO SCH (08:31)
[2022-05-21] MEDS: MEGESTROL ACETATE SUSP 400 MG/10 ML UDC PO SCH (08:31)
[2022-05-21] MEDS: PROSOURCE / PROSTAT (PYXIS) 30 ML UDC GT SCH ×2 (08:32→16:45)
[2022-05-21] MEDS: IV D5/ 0.9% NACL 1,000 ML IV SCH (08:32)
[2022-05-21] MEDS: CEFEPIME 2 GM in IV D5W 100 ML IV SCH ×2 (08:32→21:08)
[2022-05-21] MEDS: ZINC OXIDE 30 GM TUBE TP SCH (08:38)
[2022-05-21] MEDS ORDERED: IV D5/ 0.9% NACL 1,000 ML IV PRN (08:59)
[2022-05-21] MEDS ORDERED: POTASSIUM CHLORIDE 20 MEQ POWDER PACKET PO SCH (10:00)
[2022-05-21] MEDS ORDERED: NEUTRA PHOS 1 POWD.PACKET PO ONE (10:00)
[2022-05-21 11:29] LABS: BASOPHILS % (MANUAL) 0 % (0.0-2.0); EOSINOPHILS % (MANUAL) 0 % (0-4); LYMPHOCYTES % (MANUAL) 13 % (16-48); MONOCYTES % (MANUAL) 12 % (0-11.0); NEUTROPHILS % (MANUAL) 75 (42-76)
[2022-05-21 16:00] VITALS: BP 104/58
--- NOTE | 2022-05-21 16:24 | NUR ---
PATIENT D/C TO [facility] ROOM 60-B. GIVEN REPORT CONSTANTINO/RN AT [phone] INCLUDE SPINNER CAP FRAME TIME, CONDITION OF THE SKIN.
[2022-05-21] MEDS: DIFLUCAN -NS 100 MG in PREMIX IV SCH (16:45)
--- NOTE | 2022-05-21 18:35 | NUR ---
RN CLOSING NOTE PATIENT RESTING IN BED. IN NO ACUTE DISTRESS OBSERVED. RESPIRATORY EVEN AND UNLABORED ON OXYGEN AT 2Ls VIA NC, NO SOB OR DESATURATION NOTED. SKIN IS WARM TO TOUCH KEEP CLEAN/DRY. KEPT ELEVATED HOB FOR ENSURE AIRWAY/ASPIRATION PRECAUTION, AND LOWEST BED POSITION. BED ALARM IS ON AT ALL THE TIME FOR SAFETY. 2 nocturnist physician/AM WEST PICKED UP THE PATIENT, HOWEVER, THE GURNEY DOES NOT FIT WITH THE PATIENT. SO AMBULANCE WILL COME BACK TOMORROW MORNING. CALL LIGHT WITHIN REACH, WILL ENDORSE OPTOMETRIST ASSISTANT.
--- NOTE | 2022-05-21 19:15 | NUR ---
RN OPENING NOTE RECEIVED PATIENT RESTING IN BED AWAKE A/OX 1-2. BREATHING EVENLY AND UNLABORED ON OXYGEN AT 2LPM VIA NC, IV ACCES ON RIGHT HAND #20 NOTED TO BE PATENT AND INTACT INFUSING 90CC/HR D5NS. PATIENT WITH PARRA CATHETER NOTED TO BE DRAINING CLEAR YELLOW URINE. NO SOB OR DESATURATION NOTED. ASPIRATION PRECAUTION IMPLEMENTED; HOB IS ELEVATED. SAFETY MEASURE IN PLACED; BED IS LOCKED AND IN POSITION, SIDE RAILS UP X3, BED ALARM IS ON AT ALL THE TIME, CALL LIGHT AND BED SIDE TABLE WITHIN PATIENT REACH.
[2022-05-21 20:00] VITALS: BP 158/59
[2022-05-21] MEDS: ENOXAPARIN SODIUM 40 MG/0.4 ML DISP.SYRIN SQ SCH (21:10)
--- NOTE | 2022-05-22 06:37 | NUR ---
RN CLOSING NOTE PATIENT IN BED SLEEPING, BREATHING EVENLY AND NON LABORED. A/OX 1-2. ON OXYGEN AT 2LPM VIA NC, NO SIGNS OF OF SOB NOTED. IV ACCES ON RIGHT HAND #20 NOTED TO BE PATENT AND INTACT INFUSING 90CC/HR D5NS. PATIENT WITH PARRA CATHETER NOTED TO BE DRAINING CLEAR JENNIFER URINE OUTPUT OF 750CC. ALL DUE MEDICATION IS GIVEN. ALL NEEDS ARE MET. MADE SURE PATIENT IS CLEAN AND COMFORTABLE. ASPIRATION PRECAUTION IMPLEMENTED; HOB IS ELEVATED. REPOSITIONED THE PATIENT EVERY 2 HOURS THROUGH OUT THE SHIFT. SAFETY MEASURE IN PLACED; BED IS LOCKED AND IN POSITION, SIDE RAILS UP X3, BED ALARM IS ON AT ALL THE TIME, CALL LIGHT AND BED SIDE TABLE WITHIN PATIENT REACH. WILL ENDORSE TO NEXT SHIFT NURSE FOR CONTINUITY OF CARE.
--- NOTE | 2022-05-22 07:00 | NUR ---
MS RN OPENING NOTES: RECEIVED PT IN BED AWAKE. ALERT AND ORIENTED X 2, ABLE TO VERBALIZED NEEDS. NO SOB OR CARDIAC DISTRESS NOTED. DENIES PAIN AT THIS TIME. IV ACCESS ON RIGHT HAND PATENT, INTACT AND INFUSING D5NS @90CC/HR. PARRA CATHETER IN PLACE DRAINING CLEAR YELLOW COLORED URINE. PT WILL BE DC IN [facility] TODAY, WAITING FOR TRANSPORTATION. SAFETY MEASURES MAINTAINED: BED LOCKED AND IN LOWEST POSITION. SIDE RAILS UP X 2. CALL LIGHT IN EASY REACH FOR HELP. WILL MONITOR PT ACCORDINGLY.
[2022-05-22] MEDS: PANTOPRAZOLE 40 MG/PACK PACK PO SCH (07:32)
[2022-05-22] MEDS: PROSOURCE / PROSTAT (PYXIS) 30 ML UDC GT SCH (08:02)
[2022-05-22 08:12] LABS: CALCIUM, SERUM 7.6 mg/dL (8.5-10.1); CREATININE 0.5 mg/dL (0.6-1.3); PHOSPHORUS 2.4 mg/dL (2.5-4.9); POTASSIUM 3.6 mmol/L (3.5-5.1)
[2022-05-22] MEDS: MEGESTROL ACETATE SUSP 400 MG/10 ML UDC PO SCH (08:53)
--- NOTE | 2022-05-22 09:18 | NUR ---
MATERIALS ENGINEER NOTES: PT DC TO [facility]. PT ALERT AND ORIENTED X 2. AM MEDS GIVEN. NO SOB OR CARDIAC DISTRESS NOTED. IV ACCESS REMOVED AND KEPT THE IDENTIFICATION BAND IN PLACE. NO BELONGINGS. PARRA CATHETER IN PLACE PT RETAINING URINE. PT LEFT THE UNIT STABLE ACCOMPANIED BY 2 RADIO DIVISION CAPTAIN.
[2022-05-22] MEDS ORDERED: VANCOMYCIN 0.75 GM in IV D5W 250 ML IV SCH (16:00)
[2022-05-22] MEDS ORDERED: FLUCONAZOLE (100 MG) 100 MG TABLET PO SCH (17:00)
== END 2022-05-22 09:30 | DRG 720 ==
LOC: ER 10:33 → TELE 16:21 → MED 05-20 10:38
PROVIDERS: ADMIT Nurse Practitioner Acute Care; ATTEND Nurse Practitioner Acute Care
DX: A41.9 Sepsis, unspecified organism (principal); J96.01 Acute respiratory failure with hypoxia; N17.0 Acute kidney failure with tubular necrosis; G93.41 Metabolic encephalopathy; E44.0 Moderate protein-calorie malnutrition; I50.33 Acute on chronic diastolic (congestive) heart failure; J15.9 Unspecified bacterial pneumonia; D69.6 Thrombocytopenia, unspecified; E87.1 Hypo-osmolality and hyponatremia; I11.0 Hypertensive heart disease with heart failure; I21.A1 Myocardial infarction type 2; R65.20 Severe sepsis without septic shock; N39.0 Urinary tract infection, site not specified; E87.0 Hyperosmolality and hypernatremia; K21.9 Gastro-esophageal reflux disease without esophagitis; K57.90 Diverticulosis of intestine, part unspecified, without perforation or abscess without bleeding; E86.0 Dehydration; E11.9 Type 2 diabetes mellitus without complications; E87.20 Acidosis, unspecified; E87.6 Hypokalemia; K76.0 Fatty (change of) liver, not elsewhere classified; S30.0XXA Contusion of lower back and pelvis, initial encounter; X58.XXXA Exposure to other specified factors, initial encounter; Y93.9 Activity, unspecified; Y92.129 Unspecified place in nursing home as the place of occurrence of the external cause; G47.33 Obstructive sleep apnea (adult) (pediatric); E66.9 Obesity, unspecified; Z20.822 Contact with and (suspected) exposure to COVID-19
CPT/HCPCS: 36415; 36600; 70450-TC; 71045-TC; 76700-TC; 80048-TC; 80053-TC; 80061-TC; 80076-TC; 80202-TC; 81001; 82803-TC; 82962-TC; 83540-TC; 83605-TC; 83735-TC; 84100-TC; 84443-TC; 84484-TC; 85025-TC; 85730-TC; 87040-TC; 87081-TC; 87086-TC; 92526; 92611-TC; 93307-TC; 93970-TC; 97112-TC; 97530-TC; A4216; A4223; A9563; C9113; C9803; G0378; J0456; J0692; J0696; J1450; J1650; J3370; J3475; J3480; J3490; J7030; J7042; J7050; J7060; J7070; J7120

== ENCOUNTER 2022-07-03 20:04 | Emergency (ER) | payer OTHER ==
[~2022-07-03] VITALS: Ht 167.6 cm; Wt 66.2 kg
[~2022-07-03 20:04] MED LIST: ACET-2605 PO; ACET-868 PO; BISA10SU11 RC; MAGN400O6 PO; MEGE400O5 PO; NA P133E RC; OMEP1PAC7 PO; ZINC56.713 TP
--- NOTE | 2022-07-03 20:10 | NUR ---
[email or web address], from [facility], s/p fall, no loc, back of the head bump bg 142 denies any pain at this time. PLACED IN BED, AAOX3, BREATHING EVEN AND UNLABORED SATURATING AT 97%RA
--- NOTE | 2022-07-03 20:15 | NUR ---
AT BEDSIDE FOR EVAL.
--- NOTE | 2022-07-03 21:06 | NUR ---
PATIENT TAKEN TO CT VIA [facility]
--- NOTE | 2022-07-03 22:00 | NUR ---
[facility] CALLED ETA 3 HOURS FOR TRANSPORT
--- NOTE | 2022-07-03 22:19 | NUR ---
INFORMED [facility] THAT PATIENT IS DISCHARGE AND THAT ETA TIME IN FOUR HOURS.
[2022-07-04 02:09] VITALS: BP 110/66
--- NOTE | 2022-07-04 02:10 | NUR ---
patient picked up by private ambulance going back to [facility] in no distress.
== END 2022-07-04 02:09 ==
LOC: ER 20:06
DX: S00.03XA Contusion of scalp, initial encounter (principal); K21.9 Gastro-esophageal reflux disease without esophagitis; Z79.899 Other long term (current) drug therapy; W18.39XA Other fall on same level, initial encounter; Y93.89 Activity, other specified; Y92.89 Other specified places as the place of occurrence of the external cause; Y99.8 Other external cause status
CPT/HCPCS: 70450-TC; 72125-TC